=== PATIENT | male | born 1975 | race Caucasian/White ===

== ENCOUNTER 2018-03-31 23:09 | Inpatient (IN) | payer MEDICARE, MEDICAID ==
[~2018-03-31] VITALS: Ht 172.7 cm; Wt 83.1 kg
[~2018-03-31 23:09] MED LIST: BENZ1TAB10 PO; BUSP15 PO; CLON-570 PO; DULO60CA44 PO; METF500T6 PO; PANT40TA25 PO; RISP1 PO
[2018-04-01] MEDS ORDERED: LORazepam 2 MG TABLET PO PRN
[2018-04-01] MEDS: ZOLPIDEM TARTRATE 10 MG TABLET PO PRN ×2 (00:10→22:09)
[2018-04-01] MEDS ORDERED: ACETAMINOPHEN 325 MG TABLET PO PRN ×2 (00:15→11:45)
[2018-04-01] MEDS ORDERED: IBUPROFEN 400 MG TABLET PO PRN ×2 (00:15→11:45)
[2018-04-01 02:00] VITALS: BP 134/94
[2018-04-01] MEDS ORDERED: PNEUMOCOCCAL VACCINE POLYVALENT 0.5 ML VIAL [PPSV23] IM ONE (02:15)
[2018-04-01 07:43] LABS: CHOL/HDL RATIO 4.2 (4.2-7.3)
[2018-04-01] MEDS: LORazepam 1 MG TABLET PO PRN ×2 (10:13→22:09)
[2018-04-01] MEDS: HALOPERIDOL 5 MG TABLET PO PRN (10:13)
[2018-04-01] MEDS: ASENAPINE 5 MG SUBLINGUAL TABLET SL SCH ×2 (10:41→21:53)
[2018-04-01] MEDS ORDERED: OxyCODONE HCL 20 MG ER TABLET PO PRN (11:00)
[2018-04-01] MEDS: CARISOPRODOL 350 MG TABLET PO SCH ×2 (13:00→16:27)
[2018-04-01] MEDS: CARBIDOPA/LEVODOPA 25-100 MG TABLET PO SCH ×2 (13:22→16:27)
[2018-04-01] MEDS: LevETIRAcetam 500 MG TABLET PO SCH (13:23)
[2018-04-01 16:50] VITALS: BP 141/100
[2018-04-01] MEDS: MetFORMIN HCL 500 MG TABLET PO SCH (17:30)
[2018-04-01 19:02] VITALS: BP 141/100
[2018-04-01] MEDS: OxyCODONE HCL 10 MG IR TABLET PO PRN (19:02)
[2018-04-01 20:02] VITALS: BP 146/107
[2018-04-02] MEDS: MetFORMIN HCL 500 MG TABLET PO SCH ×2 (06:45→17:30)
[2018-04-02 08:29] LABS: HEMOGLOBIN A1C 6.1 % (4.5-6.2)
[2018-04-02 08:40] VITALS: BP 149/95
[2018-04-02] MEDS: ASENAPINE 5 MG SUBLINGUAL TABLET SL SCH ×2 (08:46→20:21)
[2018-04-02] MEDS: LevETIRAcetam 500 MG TABLET PO SCH (08:46)
[2018-04-02] MEDS: PANTOPRAZOLE SODIUM 40 MG DR TABLET PO SCH (08:46)
[2018-04-02] MEDS: CARISOPRODOL 350 MG TABLET PO SCH ×3 (08:47→16:00)
[2018-04-02] MEDS: CloNIDine HCL 0.1 MG TABLET PO SCH (08:47)
[2018-04-02] MEDS: OxyCODONE HCL 10 MG IR TABLET PO PRN ×2 (08:47→20:51)
[2018-04-02 08:48] LABS: CHOL/HDL RATIO 4.3 (4.2-7.3); THYROID STIMULATING HORMONE 0.42 uIU/mL (0.36-3.74)
[2018-04-02] MEDS: CARBIDOPA/LEVODOPA 25-100 MG TABLET PO SCH ×2 (08:50→16:00)
[2018-04-02 09:50] VITALS: BP 140/94
[2018-04-02] MEDS: NICOTINE 21 MG/24 HOUR PATCH TD SCH (12:53)
[2018-04-02] MEDS: LORazepam 1 MG TABLET PO PRN (16:04)
[2018-04-02] MEDS: HALOPERIDOL 5 MG TABLET PO PRN (16:04)
[2018-04-02 20:51] VITALS: BP 134/94
[2018-04-02] MEDS: ZOLPIDEM TARTRATE 10 MG TABLET PO PRN (20:51)
[2018-04-02 21:51] VITALS: BP 138/92
[2018-04-03] VITALS (7 sets, daily range): BP systolic 127–148; BP diastolic 90–111
[2018-04-03] MEDS: LORazepam 1 MG TABLET PO PRN ×3 (00:30→14:31)
[2018-04-03] MEDS: HALOPERIDOL 5 MG TABLET PO PRN ×3 (00:30→14:31)
[2018-04-03] MEDS: MetFORMIN HCL 500 MG TABLET PO SCH ×2 (07:30→17:30)
[2018-04-03] MEDS: CARBIDOPA/LEVODOPA 25-100 MG TABLET PO SCH ×2 (08:01→20:03)
[2018-04-03] MEDS: CloNIDine HCL 0.1 MG TABLET PO SCH (08:01)
[2018-04-03] MEDS: PANTOPRAZOLE SODIUM 40 MG DR TABLET PO SCH (08:01)
[2018-04-03] MEDS: ASENAPINE 5 MG SUBLINGUAL TABLET SL SCH (08:01)
[2018-04-03] MEDS: LevETIRAcetam 500 MG TABLET PO SCH (08:01)
[2018-04-03] MEDS: NICOTINE 21 MG/24 HOUR PATCH TD SCH (08:02)
[2018-04-03] MEDS: OxyCODONE HCL 10 MG IR TABLET PO PRN ×2 (08:09→21:17)
[2018-04-03] MEDS: CARISOPRODOL 350 MG TABLET PO SCH ×3 (08:09→20:03)
[2018-04-03] MEDS: ASENAPINE 10 MG SUBLINGUAL TABLET SL SCH (20:03)
[2018-04-04 02:15] VITALS: BP 156/111
[2018-04-04] MEDS: LORazepam 1 MG TABLET PO PRN ×2 (02:23→20:04)
[2018-04-04] MEDS: HALOPERIDOL 5 MG TABLET PO PRN ×2 (02:23→20:04)
[2018-04-04] MEDS: MetFORMIN HCL 500 MG TABLET PO SCH ×2 (07:07→17:07)
[2018-04-04] MEDS: NICOTINE 21 MG/24 HOUR PATCH TD SCH (08:29)
[2018-04-04] MEDS: CARBIDOPA/LEVODOPA 25-100 MG TABLET PO SCH ×2 (08:29→16:21)
[2018-04-04] MEDS: PANTOPRAZOLE SODIUM 40 MG DR TABLET PO SCH (08:30)
[2018-04-04] MEDS: LevETIRAcetam 500 MG TABLET PO SCH (08:30)
[2018-04-04] MEDS: ASENAPINE 10 MG SUBLINGUAL TABLET SL SCH ×2 (08:30→20:04)
[2018-04-04] MEDS: CloNIDine HCL 0.1 MG TABLET PO SCH (08:31)
[2018-04-04] MEDS: CARISOPRODOL 350 MG TABLET PO SCH ×3 (08:44→16:22)
[2018-04-04 12:17] VITALS: BP 148/98
[2018-04-04] MEDS: OxyCODONE HCL 10 MG IR TABLET PO PRN ×2 (12:17→22:45)
[2018-04-04 22:48] VITALS: BP 133/98
[2018-04-05] MEDS: ZOLPIDEM TARTRATE 10 MG TABLET PO PRN ×2 (00:09→21:27)
[2018-04-05 03:48] VITALS: BP 129/96
[2018-04-05] MEDS: MetFORMIN HCL 500 MG TABLET PO SCH ×2 (07:40→17:30)
[2018-04-05] MEDS: CloNIDine HCL 0.1 MG TABLET PO SCH (08:18)
[2018-04-05] MEDS: LevETIRAcetam 500 MG TABLET PO SCH (08:18)
[2018-04-05] MEDS: PANTOPRAZOLE SODIUM 40 MG DR TABLET PO SCH (08:18)
[2018-04-05] MEDS: ASENAPINE 10 MG SUBLINGUAL TABLET SL SCH ×2 (08:19→20:51)
[2018-04-05] MEDS: CARBIDOPA/LEVODOPA 25-100 MG TABLET PO SCH ×2 (08:21→16:34)
[2018-04-05] MEDS: NICOTINE 21 MG/24 HOUR PATCH TD SCH (08:21)
[2018-04-05] MEDS: LORazepam 1 MG TABLET PO PRN (08:21)
[2018-04-05] MEDS: CARISOPRODOL 350 MG TABLET PO SCH ×3 (08:38→19:15)
[2018-04-05 09:00] VITALS: BP 161/115
[2018-04-05] MEDS: GuaiFENesin/D-METHORPHAN [SUGAR-FREE] 200-20MG/10 ML SYRUP UDCUP PO PRN (13:48)
[2018-04-05] MEDS: OxyCODONE HCL 10 MG IR TABLET PO PRN (16:41)
[2018-04-05 16:42] VITALS: BP 147/96
[2018-04-06 02:15] VITALS: BP 160/89
[2018-04-06] MEDS: LORazepam 1 MG TABLET PO PRN ×2 (02:25→12:11)
[2018-04-06] MEDS: OxyCODONE HCL 10 MG IR TABLET PO PRN (02:26)
[2018-04-06] MEDS: GuaiFENesin/D-METHORPHAN [SUGAR-FREE] 200-20MG/10 ML SYRUP UDCUP PO PRN (02:47)
[2018-04-06] MEDS: MetFORMIN HCL 500 MG TABLET PO SCH ×2 (06:41→08:20)
[2018-04-06 08:10] VITALS: BP 164/111
[2018-04-06] MEDS: PANTOPRAZOLE SODIUM 40 MG DR TABLET PO SCH (08:20)
[2018-04-06] MEDS: CARBIDOPA/LEVODOPA 25-100 MG TABLET PO SCH (08:20)
[2018-04-06] MEDS: LevETIRAcetam 500 MG TABLET PO SCH (08:20)
[2018-04-06] MEDS: NICOTINE 21 MG/24 HOUR PATCH TD SCH (08:21)
[2018-04-06] MEDS: ASENAPINE 10 MG SUBLINGUAL TABLET SL SCH (08:21)
[2018-04-06] MEDS: CloNIDine HCL 0.1 MG TABLET PO SCH (08:21)
[2018-04-06] MEDS: CARISOPRODOL 350 MG TABLET PO SCH ×2 (08:35→12:11)
[2018-04-06] MEDS: HALOPERIDOL 5 MG TABLET PO PRN (12:11)
[2018-04-06] MEDS ORDERED: ASEN10TA8 SL (12:52)
[2018-04-06] MEDS ORDERED: LEVE500T53 PO (12:58)
[2018-04-06] MEDS ORDERED: CARI350 PO (13:02)
[2018-04-06] MEDS ORDERED: CARB1TAB35 PO (14:42)
== END 2018-04-06 15:10 | disposition home or self-care (01) | DRG 885 ==
LOC: 3EX 23:53
DX: F31.5 Bipolar disorder, current episode depressed, severe, with psychotic features (principal); G20 Parkinson's disease; R45.851 Suicidal ideations; G40.909 Epilepsy, unspecified, not intractable, without status epilepticus; G89.29 Other chronic pain; I10 Essential (primary) hypertension; B19.20 Unspecified viral hepatitis C without hepatic coma; K21.9 Gastro-esophageal reflux disease without esophagitis; J44.9 Chronic obstructive pulmonary disease, unspecified; I25.10 Atherosclerotic heart disease of native coronary artery without angina pectoris; E78.5 Hyperlipidemia, unspecified; E11.9 Type 2 diabetes mellitus without complications; F10.10 Alcohol abuse, uncomplicated; F19.10 Other psychoactive substance abuse, uncomplicated; M54.9 Dorsalgia, unspecified; I25.2 Old myocardial infarction; Z59.0 Homelessness; Z91.5 Personal history of self-harm; Z87.820 Personal history of traumatic brain injury
CPT/HCPCS: 83036; 84443

== ENCOUNTER 2018-07-12 09:28 | Emergency (ER) | payer MEDICARE, MEDICAID ==
[~2018-07-12] VITALS: Ht 172.7 cm; Wt 77.3 kg
[~2018-07-12 09:28] MED LIST changes: +ASEN10TA8 SL; -BENZ1TAB10 PO; -BUSP15 PO; +CARB1TAB35 PO; +CARI350 PO; -DULO60CA44 PO; +LEVE500T53 PO; +METF-960 PO; -METF500T6 PO; -RISP1 PO
[2018-07-12] MEDS ORDERED: FOLI1 PO (09:45)
[2018-07-12] MEDS ORDERED: BENZ2TAB10 PO (09:45)
[2018-07-12] MEDS ORDERED: HYDR50CA10 PO (09:45)
[2018-07-12] MEDS ORDERED: BUPR1FIL SL (09:45)
[2018-07-12] MEDS ORDERED: PRAZ1 PO (09:45)
[2018-07-12] MEDS ORDERED: MULT1CAP32 PO (09:45)
[2018-07-12] MEDS ORDERED: FINA5TAB41 PO (09:45)
[2018-07-12] MEDS ORDERED: TAMS0.4C32 PO (09:45)
[2018-07-12] MEDS ORDERED: THIA100T67 PO (09:45)
[2018-07-12 09:51] LABS: BASOPHILS % (AUTO) 0.6 % (0.0-2.0); HEMATOCRIT 46.9 % (41-53); HEMOGLOBIN 16.1 g/dL (13.5-17.5); LYMPHOCYTES # (AUTO) 1.6 K/uL (1.0-4.8); LYMPHOCYTES % (AUTO) 27.9 % (22.0-44.0); MEAN CORPUSCULAR HEMOGLOBIN 29.1 pg (26.0-34.0); MEAN CORPUSCULAR HGB CONC 34.3 G/dL (31.0-37.0); MEAN CORPUSCULAR VOLUME 85 fL (80-100); MONOCYTES # (AUTO) 0.6 K/uL (0.1-1.0); NEUTROPHILS # (AUTO) 3.6 K/uL (1.8-7.7); NEUTROPHILS % (AUTO) 60.5 % (40.0-70.0); PLATELET COUNT (AUTO) 196 K/uL (150-450); RED BLOOD CELL COUNT(AUTO) 5.53 MIL/uL (4.50-5.90); RED CELL DISTRIBUTION WIDTH 15.1 % (11.5-14.5)
[2018-07-12 10:04] LABS: GLUCOSE,POINT OF CARE 111 MG/DL (70-110)
[2018-07-12 10:21] LABS: ANION GAP 13 mmol/L (8-16); CALCIUM, TOTAL 9.8 mg/dL (8.8-10.5); CARBON DIOXIDE 26 mmol/L (22-29); CHLORIDE 102 mmol/L (98-107); CREATININE 1.04 mg/dL (0.60-1.30); GLOMERULAR FILTR. RATE CALC > 60 mL/min (>60); GLUCOSE,RANDOM 109 mg/dL (70-110); POTASSIUM 4.1 mmol/L (3.5-5.1); SODIUM SERUM 141 mmol/L (136-145); UREA NITROGEN, BLOOD 14 mg/dL (7-18)
[2018-07-12 10:24] LABS: ALANINE AMINOTRANSFERASE 38 U/L (12-78); ALKALINE PHOSPHATASE 108 U/L (46-116); ASPARTATE AMINOTRANSFERASE 78 U/L (15-37); BILIRUBIN,TOTAL 0.5 mg/dL (0.1-1.0); TOTAL PROTEIN, SERUM 8.7 g/dL (6.4-8.2)
[2018-07-12 10:44] LABS: SALICYLATE 5.9 mg/dL (2.8-20.0)
[2018-07-12 10:50] LABS: ACETAMINOPHEN < 2 mcg/mL (10-30)
[2018-07-12 11:17] VITALS: BP 108/78
== END 2018-07-12 11:18 | disposition home or self-care (01) ==
LOC: EMS 09:29
DX: R44.0 Auditory hallucinations (principal); R44.1 Visual hallucinations; L25.9 Unspecified contact dermatitis, unspecified cause; F41.9 Anxiety disorder, unspecified; F31.9 Bipolar disorder, unspecified; E11.9 Type 2 diabetes mellitus without complications; I10 Essential (primary) hypertension; F20.9 Schizophrenia, unspecified; F17.210 Nicotine dependence, cigarettes, uncomplicated
CPT/HCPCS: 36415; 80053; 82962; 85025; 99285; G0480 ×2; G0481